=== PATIENT | male | born 1975 | race Caucasian/White ===

== ENCOUNTER → 2017-03-23 | Outpatient (CLI) | payer BC ==
--- NOTE | 2017-03-23 14:10 | EST ---
EXERCISE STRESS DATE OF SERVICE: 03/23/2017 AGE: 41 SEX: Male HT: 70 WT: 240 PROTOCOL: Tayo STAGE: IV DURATION OF EXERCISE: 9 minutes 45 seconds HEART RATE REST: 60 BLOOD PRESSURE REST: 151/95 MAXIMUM HEART RATE ACHIEVED: 156 MAXIMUM BLOOD PRESSURE: 169/75 85% MPHR: 150 100% MPHR: 177 METS: 11.3 INDICATIONS: Chest pain. Baseline EKG revealed normal sinus rhythm without significant ST-T changes. Patient walked for 9 minutes 45 seconds, achieved a maximal heart rate of 156 beats per minute, which is well above 85% of predicted maximal. He developed fatigue and shortness of breath, but did not have any angina or arrhythmia. EKG did not reveal any ST-segment changes to indicate ischemia. By EKG criteria, this is a negative stress test with good exercise capacity. There was no angina or arrhythmia. There is no evidence to suggest any ischemia on this stress test. CANDYL / DANTEN: [id number] /
== END ==
LOC: RADNMMAIN 10:50
PROVIDERS: ATTEND Family Medicine
DX: R07.9 Chest pain, unspecified (principal)
CPT/HCPCS: 93017

== ENCOUNTER → 2017-09-06 | Outpatient (CLI) | payer BC ==
--- NOTE | 2017-09-06 15:52 | CONS ---
CONSULTATION DATE OF SERVICE: 09/06/2017. 42-year-old gentleman has been re-evaluated in the Sleep Center for obstructive sleep apnea-hypopnea syndrome. HISTORY OF PRESENT ILLNESS/SLEEP WAKE EVALUATION: Patient had been diagnosed with obstructive sleep apnea in 2013. At that time, he was started on treatment with CPAP and he continued using his CPAP equipment at the present time. I never saw him after the titration. The patient continued to use his CPAP equipment every night for the whole night. I checked his CPAP unit. CPAP pressure is 12 cm of water. Usage is 30/30 nights for more than 4 hours. Average usage is 6.3 hours. Sometimes patient has discomfort in his chest in the morning after using CPAP. Machine does not have an information about apnea- hypopnea index. Ramp is 45 minutes. Since previous titration, patient increased his weight only 2 pounds. The patient's sleep schedule on working days from 10:00 p.m. to 4:00 a.m., on weekends from 10:00 p.m. to 6:00 a.m. No problem with falling asleep. According to him, he does not snore if he is using machine. He wakes up from sleep up to 2 times, but no nocturia. No episodes of hypnagogic hallucinations, sleep paralysis or cataplexy. [place] Sleepiness Scale is 9. PAST MEDICAL HISTORY: Hyperlipidemia, low level of vitamin D. MEDICATIONS: Vitamin D supplement, some [id number] supplements for decreasing cholesterol. PAST SURGICAL HISTORY: Appendectomy. REVIEW OF SYSTEMS: Sometimes awakenings from sleep, feeling of pressure in the chest in the mornings after using CPAP. SOCIAL HISTORY: Negative for smoking. Alcohol occasionally. FAMILY HISTORY: Hypertension, heart problems, hyperlipidemia, arthritis, snoring, cancer. PHYSICAL EXAM: GENERAL 42-year-old gentleman without distress. VITAL SIGNS BP 129/71, HR 60, RR 16, height 5 feet 9-1/2 inches, weight 244, BMI 35.5, temperature 97.8, oxygen saturation on room air 96%. HEENT PERRLA, EOMI, evaluation of oropharynx showed extremely low position of soft palate. Mallampati IV. Neck is 18 inches in circumference. Restriction of nasal breathing on the left side. Possible nasal septum deviation. NECK Supple, no JVD. Thyroid is not palpable. LUNGS Clear to percussion and to auscultation. Good air exchange. No wheezing or rhonchi. HEART S1, S2 regular. No murmurs, gallops, or rubs. ABDOMEN Obese. Soft and nontender. Bowel sounds are present. No organomegaly appreciated. EXTREMITIES No clubbing or cyanosis. DRAWER IN STITCH BONDING MACHINE Awake, alert, and oriented X3. Cranial nerves 2 to 7 intact. There is no fasciculation or atrophy. noted. No focal deficits observed. IMPRESSION: 1. Obstructive sleep apnea-hypopnea syndrome by results of polysomnography in 2013 with apnea-hypopnea index 24.7. The patient continued treatment with CPAP presently at the pressure of 12 cm of water. Sometimes in the morning, patient feels chest pressure after using CPAP equipment. 2. Hyperlipidemia. 3. Low level of vitamin D. 4. Status post appendectomy. 5. Obesity, BMI 35.5. PLAN: 1. Repeat the CPAP titration with a goal possibly decrease CPAP pressure. 2. Losing weight. 3. Sleep hygiene with regular time in bed for at least 8 hours. 4. No driving if feeling sleepiness. Thank you very much for referring your patient for evaluation. Sincerely, Walter Pacheco MD, PhD, FAASM Diplomat of [place] [employer] [place] [employer] Delivery Room Clerk of [facility] MMODL / IJN: [id number] /
== END | disposition home or self-care (01) ==
LOC: SLEEP 13:38
PROVIDERS: ATTEND Internal Medicine
DX: G47.33 Obstructive sleep apnea (adult) (pediatric) (principal); E78.5 Hyperlipidemia, unspecified; E55.9 Vitamin D deficiency, unspecified; E66.9 Obesity, unspecified; Z68.35 Body mass index [BMI] 35.0-35.9, adult; Z99.89 Dependence on other enabling machines and devices; Z79.899 Other long term (current) drug therapy; Z90.89 Acquired absence of other organs
CPT/HCPCS: 99211

== ENCOUNTER → 2017-12-04 | Outpatient (CLI) | payer BC ==
--- NOTE | 2017-12-04 10:41 | XR ---
EXAMINATION TYPE: XR foot complete LT DATE OF EXAM: 12/04/2017 CLINICAL HISTORY: pain TECHNIQUE: Frontal, lateral and oblique images of the left foot are obtained. COMPARISON: None. FINDINGS: There is no acute fracture/dislocation evident. The joint spaces appear within normal gregory its. The overlying soft tissue appears unremarkable. IMPRESSION: There is no acute fracture or dislocation. ICD 10 NO FRACTURE, INITIAL EVALUATION
== END | disposition home or self-care (01) ==
LOC: RADXRYALE 09:46
PROVIDERS: ATTEND Physician Assistant Medical
DX: M79.672 Pain in left foot (principal)

== ENCOUNTER 2018-01-06 20:37 | Emergency (ER) | payer BC ==
[2018-01-06 20:41] VITALS: RESP 18
[2018-01-06] MEDS ORDERED: PROPARACAINE 0.5% OPHTH DROPS 15 ML BTL BOTH EYES STA (20:44)
--- NOTE | 2018-01-06 21:24 | ED ---
Eye Problem HPI - General Chief complaint: Eye Problems Stated complaint: eye pain Time Seen by Provider: 01/06/18 20:44 Source: patient Mode of arrival: ambulatory Limitations: no limitations - History of Present Illness Initial comments: 42-year-old male patient presents to the emergency department today for evaluation of bilateral eye discomfort. Patient states on he was working outside on his deck. He states that he was sawing wood and did get some dust in his eyes. States that he has been having some grittiness to his bilateral eyes since then. States that he did follow-up with the doctor and had them evaluate thighs but they couldn't find any foreign bodies or injuries at that time. Patient states that he continued to have some discomfort today however the left eye became worse, the lower lid started to swell, and he had pain radiating around his face. Patient denies taking any medication for his symptoms. Denies any blurred or double vision. States when he woke up his eyes were crusted, but he denies any continuous drainage. Denies any fevers or chills. Patient states he does have a slight headache. Patient denies any recent rash, fever, chills, shortness breath, chest pain, abdominal pain, nausea , vomiting, diarrhea, constipation, back pain, numbness, tingling, dizziness, weakness, hematuria, dysuria, urinary urgency, urinary frequency, headache, visual changes, or any other complaints. - Related Data Previous Rx's Medication Instructions Recorded Loratadine [Claritin] 10 mg PO DAILY #30 tablet 01/06/18 Allergies Allergy/AdvReac Type Severity Reaction Status Date / Time Ajffoyo-Rou-Kuz Reductase Allergy Unknown Verified 01/06/18 20:39 Inhibitor Review of Systems ROS Statement: Those systems with pertinent positive or pertinent negative responses have been documented in the HPI. ROS Other: All systems not noted in ROS Statement are negative. Past Medical History Past Medical History: No Reported History History of Any Multi-Drug Resistant Organisms: None Reported Past Surgical History: Appendectomy Past Psychological History: No Psychological Hx Reported Smoking Status: Never smoker Past Alcohol Use History: None Reported Past Drug Use History: None Reported General Exam Limitations: no limitations General appearance: alert, in no apparent distress, other (This is a well- developed, well-nourished adult male patient in no acute distress. Vital signs upon presentation are temperature 98.2F, pulse 75, respirations 18, blood pressure 127/81, pulse ox 98% on room air.) Eye exam: Present: PERRL, EOMI, other (No proptosis). Absent: normal appearance , scleral icterus, conjunctival injection, nystagmus, periorbital swelling Expanded Eyelids: Normal Inspection: Right, Erythema: Left (Lower lid), Swelling: Left ( Lower lid) Pupils: Regular, Round: Bilateral, Reactive: Bilateral Sclera/Conjunctival: Normal Inspection: Bilateral Anterior chamber: Normal Inspection: Bilateral ENT exam: Present: normal exam, normal oropharynx, mucous membranes moist, TM's normal bilaterally Neck exam: Present: normal inspection. Absent: tenderness, meningismus, lymphadenopathy Respiratory exam: Present: normal lung sounds bilaterally. Absent: respiratory distress, wheezes, rales, rhonchi, stridor Cardiovascular Exam: Present: regular rate, normal rhythm, normal heart sounds. Absent: systolic murmur, diastolic murmur, rubs, gallop, clicks Neurological exam: Present: alert, oriented X3, CN II-XII intact Psychiatric exam: Present: normal affect, normal mood Skin exam: Present: warm, dry, intact, normal color. Absent: rash Course Vital Signs 01/06/18 20:40 Temperature 98.2 F Pulse Rate 75 Respiratory 18 Rate Blood Pressure 127/81 O2 Sat by Pulse 98 Oximetry Medical Decision Making - Medical Decision Making 42-year-old male patient presents to the emergency department today for evaluation of bilateral eye discomfort and left eye swelling. Physical examination was performed, right eye appears to be within normal limits with no injection, swelling, drainage, abrasion, or lesion. Left eye does exhibit left lower lid swelling and erythema. The globe appears to be intact with no evidence of injection, abrasion, or laceration. Upper lip is normal. Patient has no proptosis. No fever, vital signs are stable. Patient be discharged home with oral antihistamine, moxifloxacin drops and referral to ophthalmology Dr. Doe. Patient educated regarding return parameters. He verbalizes understanding and agrees with this plan. Disposition Clinical Impression: Inflammation of left eyelid Disposition: HOME SELF-CARE Condition: Good Instructions: Moxifloxacin (Into the eye), Blepharitis (ED) Additional Instructions: Do warm compresses to the eye. Do one drop to the left eye 3 times a day. Follow-up with driver messenger if your symptoms aren't improving over the next 1 -2 days. Take ibuprofen as needed for discomfort. Return here immediately for any new, worsening, or concerning symptoms. Prescriptions: Loratadine [Claritin] 10 mg PO DAILY #30 tablet Is patient prescribed a controlled substance at d/c from ED?: No Referrals: Yan Boone DO [Primary Care Provider] - 1-2 days Saul Doe MD [STAFF PHYSICIAN] - 1-2 days Time of Disposition: 21:37
[2018-01-06] MEDS ORDERED: MOXIFLOXACIN HCL 0.5% DROPS 3 ML BTL LEFT EYE ONE (21:25)
[2018-01-06] MEDS ORDERED: LORATADINE 10 MG TAB PO STA (21:25)
[2018-01-06] MEDS ORDERED: DIPH,PERTUS(ACELL)TETVAC-LF 0.5 ML VIAL IM ONE (21:25)
[2018-01-06 21:54] VITALS: BP 109/65; PULSE 65; TEMP 97.8
== END 2018-01-06 21:59 | disposition home or self-care (01) ==
LOC: EC 20:37
DX: H01.9 Unspecified inflammation of eyelid (principal); Z23 Encounter for immunization; Z88.8 Allergy status to other drugs, medicaments and biological substances
CPT/HCPCS: 90471; 90715; 99283

== ENCOUNTER → 2020-04-13 | Outpatient (CLI) | payer BC ==
--- NOTE | 2020-04-14 07:05 | XR ---
EXAMINATION TYPE: XR foot complete RT DATE OF EXAM: 04/13/2020 CLINICAL HISTORY: pain TECHNIQUE: Frontal, lateral and oblique images of the right foot are obtained. COMPARISON: None. FINDINGS: There is no acute fracture/dislocation evident. The joint spaces appear within normal gregory its. The overlying soft tissue appears unremarkable. IMPRESSION: There is no acute fracture or dislocation. ICD 10 NO FRACTURE, INITIAL EVALUATION
--- NOTE | 2020-04-14 07:11 | XR ---
EXAMINATION TYPE: XR knee complete LT DATE OF EXAM: 04/13/2020 CLINICAL HISTORY: pain TECHNIQUE: Three views of the left knee are obtained. COMPARISON: None. FINDINGS: There is no acute fracture/dislocation. The tri-compartment joint spaces appear within no rmal limits. The overlying soft tissue appears unremarkable. IMPRESSION: There is no acute fracture or dislocation ICD 10 NO FRACTURE, INITIAL EVALUATION
== END | disposition home or self-care (01) ==
LOC: RADXRYALE 16:22
PROVIDERS: ATTEND Physician Assistant Medical
DX: M79.671 Pain in right foot (principal); M25.562 Pain in left knee

== ENCOUNTER → 2020-11-25 | Outpatient (CLI) | payer BC ==
--- NOTE | 2020-11-25 20:48 | CONS ---
CONSULTATION DATE OF SERVICE: 11/25/2020 This 45-year-old gentleman has been re-evaluated in Sleep Center for obstructive sleep apnea-hypopnea syndrome. HISTORY OF PRESENT ILLNESS/SLEEP-WAKE EVALUATION: The patient has a history of obstructive sleep apnea since 2013. He continues to use his CPAP equipment every night. Recently the patient developed snoring and awakenings from sleep with gasping for air while on treatment with CPAP. His weight has increased compared to the previous visit by about 12 pounds. His sleep schedule is from 9:30 p.m. to 4:30 a.m. on weekdays and from 10 p.m. to 6 a.m. on weekends. He usually sleeps on the back or in different positions and occasionally rolls over during the night. No history of hypnagogic hallucinations, sleep paralysis or cataplexy. [place] Sleepiness Scale increased to 10. PAST MEDICAL HISTORY: Positive for hyperlipidemia, low level of vitamin D. PAST SURGICAL HISTORY: Appendectomy, left eye surgery in 2019. SOCIAL HISTORY: Negative for smoking, and recently no use of alcohol. FAMILY HISTORY: Hypertension, heart problems, hyperlipidemia, arthritis, cancer, snoring. REVIEW OF SYSTEMS: No fevers. No double vision. No recent chest pain. No shortness of breath. No abdominal pain. No bleeding episodes. No blood in the urine. No seizure episodes. Snoring on CPAP, some awakenings from sleep, episodes of gasping for air while using CPAP. PHYSICAL EXAMINATION: GENERAL: A pleasant gentleman without distress. VITAL SIGNS: BP 131/83, HR 63, RR 18, height 5 feet 10 inches, weight 254.8, temperature 97.6, oxygen saturation at room air 96%. Body mass index 36.8. HEENT: PERRLA, EOMI. Evaluation of oropharynx showed tongue protrudes midline. Extremely low position of soft palate. Mallampati IV. NECK: Supple. No JVD. Thyroid is not palpable. Neck is wide, measuring 19 inches in circumference. LUNGS: Clear to percussion and to auscultation. Good air exchange. No wheezing or rhonchi. HEART: S1, S2 regular. No murmurs, gallops or rubs. ABDOMEN: Slightly obese. EXTREMITIES: No clubbing or cyanosis. YARN TWISTER: Awake, alert, and oriented X3. Cranial nerves 2 to 7 intact. There is no fasciculation or atrophy. noted. No focal deficits observed. IMPRESSION: 1. Obstructive sleep apnea-hypopnea syndrome. By results of polysomnogram in 2013, apnea-hypopnea index 24.7. The patient is on treatment with CPAP but snores with CPAP and has awakenings from sleep. 2. Hyperlipidemia. 3. Low level of vitamin D. 4. Status post appendectomy. 5. Obesity. BMI 36.8. Previously several years ago the patient had discomfort in the chest while using CPAP, and after that I decreased the pressure. He feels well, but I did not see him since that time. Today is his first visit since he came back. PLAN: 1. CPAP titration for re-evaluation of effective CPAP pressure at the present time. At present, patient wakes up from sleep with snoring and gasping for air. Before he complained that the pressure was too high and he had discomfort in the chest. 2. Watching and losing weight. 3. Sleep hygiene with regular time in bed for at least 7-1/2 hours. 4. Preferable position during sleep on the side. 5. No driving if patient feels any sleepiness. 6. I will see the patient for follow-up visit to explain results of testing and following plan. Thank you very much for allowing me to participate in the management of your patient. Sincerely, Walter Pacheco MD, PhD, FAASM Diplomat of [place] [employer] [employer] Plant And Machinery Valuer of [facility] [place] MMODL / CHICO: [id number] /
== END ==
LOC: SLEEP 11:30
PROVIDERS: ATTEND Internal Medicine
DX: G47.33 Obstructive sleep apnea (adult) (pediatric) (principal); E78.5 Hyperlipidemia, unspecified; E55.9 Vitamin D deficiency, unspecified; E66.9 Obesity, unspecified; Z68.36 Body mass index [BMI] 36.0-36.9, adult; Z90.49 Acquired absence of other specified parts of digestive tract; Z88.8 Allergy status to other drugs, medicaments and biological substances
CPT/HCPCS: 99211

== ENCOUNTER → 2021-06-23 | Outpatient (CLI) | payer BC ==
--- NOTE | 2021-06-23 22:27 | SFUN ---
SLEEP CENTER FOLLOW UP NOTE DATE OF SERVICE: 06/23/2021 This 46-year-old gentleman who has been followed in Sleep Center for treatment of obstructive sleep apnea-hypopnea syndrome. Recently the patient had CPAP titration and after that received a new CPAP unit. Today is his first visit after he received new CPAP equipment. The patient likes it and is able to use it every night without significant problems. He adjusted the level of humidity because the machine takes too much water during the night, according to the patient, in the humidifier. [place] Sleepiness Scale today is 10, which is borderline. I checked information from the machine. The patient used it 73% of the time for more than 4 hours. It is in automatic regimen 5-10, average pressure 9.8 with maximal 10, apnea-hypopnea index only 1.1. Leak is 8.8, which is acceptable, in good range. Pravastatin. PHYSICAL EXAMINATION: GENERAL: Pleasant patient in no distress. VITAL SIGNS: BP 122/74, HR 64, RR 15, weight 261 pounds, temperature 98.5, oxygen saturation at room air 97%. HEENT: PERRLA, EOMI, evaluation of oropharynx showed tongue protrudes midline. Extremely low position of soft palate; Mallampati IV. NECK: Supple, no JVD. Thyroid is not palpable. LUNGS: Clear to percussion and to auscultation. Good air exchange. No wheezing or rhonchi. HEART: S1, S2 regular. No murmurs, gallops, or rubs. ABDOMEN: Soft and nontender. Bowel sounds are present. No organomegaly appreciated. EXTREMITIES: No clubbing or cyanosis. MANAGER: Awake, alert, and oriented X3. Cranial nerves 2 to 7 intact. There is no fasciculation or atrophy. noted. No focal deficits observed. IMPRESSION: 1. Obstructive sleep apnea-hypopnea syndrome. Patient demonstrated good compliance with treatment, benefitting from treatment. Normal respiration on CPAP. 2. Hyperlipidemia. 3. Obesity. 4. History of low vitamin D level. 5. Status post appendectomy. PLAN: 1. Patient will continue to use PAP equipment every night for the whole night. 2. Sleep hygiene with regular time in bed for at least 7-1/2 to 8 hours. 3. Precautions related to driving. No driving if feeling sleepiness. 4. I will maintain all necessary prescription for PAP supplies including mask, tube, filters. 5. Watching weight. 6. Follow-up visit in 6 months or earlier if patient has any problems. Thank you very much for allowing me to participate in the management of your patient. Sincerely, Walter Pacheco MD, PhD, FAASM Diplomat of [place] [employer] Sleep Medicine Board of [place] [employer] Gaming Surveillance Observer of [facility] [place] MMODL / DANTEN: [id number] /
== END ==
LOC: SLEEP 14:32
PROVIDERS: ATTEND Internal Medicine
DX: G47.33 Obstructive sleep apnea (adult) (pediatric) (principal); E78.5 Hyperlipidemia, unspecified; E66.9 Obesity, unspecified; Z86.39 Personal history of other endocrine, nutritional and metabolic disease; Z90.49 Acquired absence of other specified parts of digestive tract; Z88.8 Allergy status to other drugs, medicaments and biological substances

== ENCOUNTER → 2022-02-02 | Outpatient (CLI) | payer BC ==
--- NOTE | 2022-02-02 17:14 | P.PN ---
Subjective DATE: 02/02/2022 FOLLOW UP VISIT. Patient with obstructive sleep apnea hypopnea syndrome return to sleep center for follow-up visit. Information from previous visit have been reviewed. Patient is using PAP equipment every night for the whole night, getting PAP supplies in time. Sometimes patient snores while using CPAP The patient does not have significant problems with the mask, PAP unit and humidification. [place] sleepiness scale is 10. I checked information from PAP unit. PAP unit pressure 510, average 9.9 cm H2O. Usage is 97 % for more then 4 hours, average 6.5 hours per night. Leak is 3 l/m, which is in acceptable range. Apnea Hypopnea Index is 1, which is normal. MEDICATIONS:1. Pravastatin 2. Fish oil 3. Vitamin D During physical exam: GENERAL: A pleasant patient without any distress. VITAL SIGNS: BP 128/81, HR 62, RR 18 , weight 269.0, patient increase his weight on 8 pounds, temperature 97.2, oxygen saturation at room air 96 % . HEENT: PERRLA, EOMI.low position of soft palate, Mallapati 4 . NECK: Supple. No JVD. LUNGS: Clear to percussion and to auscultation. Good air exchange. No wheezing or rhonchi. HEART: S1, S2 regular. ABDOMEN: Soft and nontender.[] EXTREMITIES: No clubbing or cyanosis. PLANER MILL GRADER: Awake, alert, and oriented x3. No focal deficit. Impressions: 1. Obstructive sleep apnea-hypopnea syndrome. Patient demonstrated great compliance with treatment, benefiting from treatment. Episodes of snoring while using CPAP equipment. 2. Hyperlipidemia. 3. Obesity. 4. History of low vitamin D level. 5. Status post appendectomy. Plan: 1. Continue using PAP equipment every night for the whole night. I changed regimen of CPAP pressure to the level 515 centimeters of water. 2. To change air filter at least 1-2 times per month. 3. PAP unit should stay lower then position of the head. 4. Advised patient to remove all remaining water from humidifier canister daily and make it dry after each usage. Refill canister with fresh distilled water before each usage. 5. Sleep hygiene with regular time in bed for at least 8 hours. 6. Precautions related to driving. No driving if feel any sleepiness. 7. I will maintain prescription for PAP supplies including mask, tube, filters. 8. Follow up visit in 6 months or earlier if patient has any problems. 9. Watching weight. Thank you very much for allowing me to participate in the management of your patient. Walter Pacheco MD, PhD, FAASM. Diplomat of [place] [employer], Sleep Medicine Board by [place] [employer] Trim Mounter of [facility] [place]
== END ==
LOC: SLEEP 15:08
PROVIDERS: ATTEND Internal Medicine
DX: G47.33 Obstructive sleep apnea (adult) (pediatric) (principal); E78.5 Hyperlipidemia, unspecified; E66.9 Obesity, unspecified; Z90.49 Acquired absence of other specified parts of digestive tract; Z86.39 Personal history of other endocrine, nutritional and metabolic disease; Z99.89 Dependence on other enabling machines and devices; Z88.8 Allergy status to other drugs, medicaments and biological substances
CPT/HCPCS: 99212

== ENCOUNTER 2022-07-19 09:25 | Day surgery (SDC) | payer BC ==
[~2022-07-19 09:25] MED LIST: LACTATED RINGERS 1,000 ML IV SCH; LIDOCAINE 1% (10MG/ML) FOR IV START INTRADERMA PRN
[2022-07-19 09:52] VITALS: RESP 16; TEMP 97.1
[2022-07-19] MEDS ORDERED: PROPOFOL 10 MG/ML 20 ML VIAL IV ONE (10:53)
--- NOTE | 2022-07-19 11:05 | P.PCN ---
Date of Procedure: 07/19/22 Procedure(s) Performed: BRIEF HISTORY: Patient is a 47-year-old pleasant white male scheduled for an elective colonoscopy as a part of screening for colon cancer. PROCEDURE PERFORMED: Colonoscopy. PREOPERATIVE DIAGNOSIS: Screening for colon cancer. IV sedation per Anesthesia. PROCEDURE: After informed consent was obtained, the patient, was brought into the endoscopy unit. IV sedation was administered by Anesthesia under continuous monitoring. Digital rectal examination was normal. Initially the Olympus CF-160 flexible video colonoscope was then inserted in the rectum, gradually advanced into the cecum without any difficulty. Careful examination was performed as the scope was gradually being withdrawn. Ileocecal valve and the appendiceal orifice were visualized and appeared normal. Prep was excellent. Mucosa of the cecum, ascending colon, transverse colon, descending colon, sigmoid colon, and rectum appeared normal. Retroflexion was performed in the rectum and no lesions were seen. The patient tolerated the procedure well. IMPRESSION: Normal-appearing colon from rectum to cecum with no evidence of colorectal neoplasia . RECOMMENDATIONS: Findings of this examination were discussed with the patient as his family. He was advised to have a repeat screening colonoscopy in 10 year s..
[2022-07-19 11:32] VITALS: BP 115/75; PULSE 55
== END 2022-07-19 12:11 | disposition home or self-care (01) ==
LOC: ORWHC2ENDO 09:25
PROVIDERS: ATTEND Internal Medicine Gastroenterology
DX: Z12.11 Encounter for screening for malignant neoplasm of colon (principal); Z88.8 Allergy status to other drugs, medicaments and biological substances; G47.33 Obstructive sleep apnea (adult) (pediatric); Z79.899 Other long term (current) drug therapy
CPT/HCPCS: 45378; J2704

== ENCOUNTER → 2022-11-20 | Outpatient (CLI) | payer BC ==
--- NOTE | 2022-11-21 11:49 | XR ---
EXAMINATION TYPE: XR shoulder complete 3 views RT DATE OF EXAM: 11/20/2022 Comparison: None Clinical History: 47-year-old male [id number] RT SHLD PAIN Findings: AC joint appears congruent and intact. Subacromial space is preserved. No tendinous or bursal calcifi cations. No acute fracture, subluxation, or dislocation is seen. Impression: No acute osseous abnormality seen.
== END | disposition home or self-care (01) ==
LOC: RADXRYALE 16:38
PROVIDERS: ATTEND Physician Assistant
DX: M25.511 Pain in right shoulder (principal)

== ENCOUNTER → 2023-02-28 | Outpatient (CLI) | payer BC ==
--- NOTE | 2023-02-28 16:57 | P.PN ---
Subjective DATE: 02/28/2023 FOLLOW UP VISIT. Patient with obstructive sleep apnea hypopnea syndrome return to sleep center for follow-up visit. Information from previous visit have been reviewed. Patient is using PAP equipment every night for the whole night, getting PAP supplies in time. The patient does not have significant problems with the mask, PAP unit and humidification. [place] sleepiness scale is 9, which is borderline. I checked information from PAP unit. PAP unit pressure 5-15, average 12.8 cm H2O. Usage is 100 % for more then 4 hours, average 6.5 hours per night. Leak is 0.8 l/m, which is in acceptable range. Apnea Hypopnea Index is 1.0, which is normal. MEDICATIONS:1. Pravastatin 40 mg once a day During physical exam: GENERAL: A pleasant patient without any distress. VITAL SIGNS: BP 118/80, HR 67, RR 16 , weight 269.6, temperature 98.4, oxygen saturation at room air 98 % . HEENT: PERRLA, EOMI.low position of soft palate, Mallapati 4 . NECK: Supple. No JVD. LUNGS: Clear to percussion and to auscultation. Good air exchange. No wheezing or rhonchi. HEART: S1, S2 regular. ABDOMEN: Soft and nontender. Slightly obese EXTREMITIES: No clubbing or cyanosis. POURER METAL: Awake, alert, and oriented x3. No focal deficit. Impressions: 1. Obstructive sleep apnea-hypopnea syndrome. Patient demonstrated great compliance with treatment, benefiting from treatment. 2. Obesity, BMI 39.1, patient lost 5 pounds comparing with previous visit. 3. Hyperlipidemia. 4. History of low vitamin D. 5. Status post appendectomy. Plan: 1. Continue using PAP equipment every night for the whole night. 2. To change air filter at least 1-2 times per month. 3. PAP unit should stay lower then position of the head. 4. Advised patient to remove all remaining water from humidifier canister daily and make it dry after each usage. Refill canister with fresh distilled water before each usage. 5. Sleep hygiene with regular time in bed for at least 8 hours. 6. Precautions related to driving. No driving if feel any sleepiness. 7. I will maintain prescription for PAP supplies including mask, tube, filters. 8. Follow up visit in 6 months or earlier if patient has any problems. 9. Watching and losing weight. Thank you very much for allowing me to participate in the management of your patient. Walter Pacheco MD, PhD, FAASM. Diplomat of [employer], Sleep Medicine Board by [employer] Lease Administration Supervisor of [facility] [place]
== END ==
LOC: 3 N SLEEP 16:17
PROVIDERS: ATTEND Internal Medicine
DX: G47.33 Obstructive sleep apnea (adult) (pediatric) (principal); E78.5 Hyperlipidemia, unspecified; E66.9 Obesity, unspecified; Z68.39 Body mass index [BMI] 39.0-39.9, adult; Z90.49 Acquired absence of other specified parts of digestive tract; Z99.89 Dependence on other enabling machines and devices; Z88.8 Allergy status to other drugs, medicaments and biological substances
CPT/HCPCS: 99212

== ENCOUNTER → 2023-10-03 | Outpatient (CLI) | payer BC ==
[2023-10-03 17:01] VITALS: BP 130/82; PULSE 64; RESP 16; TEMP 98.1
--- NOTE | 2023-10-03 17:53 | P.PN ---
Subjective DATE: 10/03/2023 FOLLOW UP VISIT. Patient with obstructive sleep apnea hypopnea syndrome return to sleep center for follow-up visit. Information from previous visit have been reviewed. Patient is using PAP equipment every night for the whole night, getting PAP supplies in time. The patient does not have significant problems with the mask, PAP unit and humidification. [place] sleepiness scale is increased to 12. I checked information from PAP unit. PAP unit pressure 5-15, average 13.0 cm H2O. Usage is 100% for more then 4 hours, average 6.75 hours per night. Leak is 13.0 l/m, which is in acceptable range. Apnea Hypopnea Index is 1.2, which is normal. MEDICATIONS:1. Pravastatin 2. Vitamin D During physical exam: GENERAL: A pleasant patient without any distress. VITAL SIGNS: Please see notes below. HEENT: PERRLA, EOMI.low position of soft palate, Mallapati 4 . NECK: Supple. No JVD. LUNGS: Clear to percussion and to auscultation. Good air exchange. No wheezing or rhonchi. HEART: S1, S2 regular. ABDOMEN: Soft and nontender.[] EXTREMITIES: No clubbing or cyanosis. GAS METER CHECKER: Awake, alert, and oriented x3. No focal deficit. Impressions: 1. Obstructive sleep apnea-hypopnea syndrome. Patient demonstrated great compliance with treatment, benefiting from treatment. 2. Obesity BMI 38.7. 3. Hyperlipidemia. 4. Low level of vitamin D. 5. Status post appendectomy. Plan: 1. Continue using PAP equipment every night for the whole night. 2. To change air filter at least 1-2 times per month. 3. PAP unit should stay lower then position of the head. 4. Advised patient to remove all remaining water from humidifier canister daily and make it dry after each usage. Refill canister with fresh distilled water before each usage. 5. Sleep hygiene with regular time in bed for at least 8 hours. 6. Precautions related to driving. No driving if feel any sleepiness. 7. I will maintain prescription for PAP supplies including mask, tube, filters. 8. Watching and losing weight. 9. Follow up visit in 6 months or earlier if patient has any problems. Thank you very much for allowing me to participate in the management of your patient. Walter Pacheco MD, PhD, FAASM. Diplomat of [employer], Sleep Medicine Board by [employer] Control Panel Operator [facility] [place] Objective - Vital Signs Vital signs: Vital Signs Temp 98.1 F 10/03/23 16:41 Pulse 64 10/03/23 16:41 Resp 16 10/03/23 16:41 BP 130/82 10/03/23 16:41 Pulse Ox 98 10/03/23 16:41 FiO2 Intake & Output 10/02/23 10/03/23 10/03/23 18:59 06:59 18:59 Weight 122.47 kg
== END | disposition home or self-care (01) ==
LOC: 3 N SLEEP 16:10
PROVIDERS: ATTEND Internal Medicine
DX: G47.33 Obstructive sleep apnea (adult) (pediatric) (principal); E66.9 Obesity, unspecified; E78.5 Hyperlipidemia, unspecified; D64.9 Anemia, unspecified; Z90.49 Acquired absence of other specified parts of digestive tract; Z68.38 Body mass index [BMI] 38.0-38.9, adult; Z88.1 Allergy status to other antibiotic agents
CPT/HCPCS: 99212

== ENCOUNTER → 2024-07-03 | Outpatient (CLI) | payer BC ==
[2024-07-03 15:51] VITALS: BP 116/74; PULSE 63; RESP 16; TEMP 98.2
--- NOTE | 2024-07-03 16:26 | P.PROGSL ---
Subjective DATE: 07/03/2024 FOLLOW UP VISIT. Patient with obstructive sleep apnea hypopnea syndrome return to sleep center for follow-up visit. Information from previous visit have been reviewed. Patient is using PAP equipment every night for the whole night, getting PAP supplies in time. The patient does not have significant problems with the mask, PAP unit and humidification. [place] sleepiness scale is 8, which is in normal range. I checked information from PAP unit. PAP unit pressure 5-15, average 12.4 cm H2O. Usage is 100% for more then 4 hours, average 6.4 hours per night. Leak is perfect 1 l/m. Apnea Hypopnea Index is 0.9, which is normal. MEDICATIONS have been reviewed, please see below. During physical exam: GENERAL: A pleasant patient without any distress. VITAL SIGNS: Please see below, weight is 263 lbs. HEENT: PERRLA, EOMI.low position of soft palate, Mallapati 4 . NECK: Supple. No JVD. LUNGS: Clear to percussion and to auscultation. Good air exchange. No wheezing or rhonchi. HEART: S1, S2 regular. ABDOMEN: Soft and nontender.[] EXTREMITIES: No clubbing or cyanosis. MAINTENANCE AIDE: Awake, alert, and oriented x3. No focal deficit. Impressions: 1. Obstructive sleep apnea-hypopnea syndrome. Patient demonstrated great compliance with treatment, benefiting from treatment. 2. Obesity, BMI 37.4. 3. Hyperlipidemia. 4. History of low level of vitamin D. 5. Status post appendectomy. Plan: 1. Continue using PAP equipment every night for the whole night. 2. Sleep hygiene with regular time in bed for at least 7.5-8 hours 3. PAP unit should stay lower then position of the head. 4. Advised patient to remove all remaining water from humidifier canister daily and make it dry after each usage. Refill canister with fresh distilled water before each usage. 5. Watching weight. 6. Precautions related to driving. No driving if feel any sleepiness. 7. I will maintain prescription for PAP supplies including mask, tube, filters. 8. Follow up visit in 8 months or earlier if patient has any problems. Thank you very much for allowing me to participate in the management of your patient. Walter Pacheco MD, PhD, FAASM. Diplomat of [employer], Sleep Medicine Board by [employer] Chief Minister of [facility] [place] Objective - Vital Signs Vital Signs: Vital Signs Temp 98.2 F 07/03/24 15:50 Pulse 63 07/03/24 15:50 Resp 16 07/03/24 15:50 BP 116/74 07/03/24 15:50 Pulse Ox 97 07/03/24 15:50 FiO2 Intake & Output 07/02/24 07/03/24 07/03/24 18:59 06:59 18:59 Weight 119.295 kg Home Medications: Home Medications Medication Instructions Recorded Confirmed Type Cholecalciferol [Vitamin D3 (25 25 mcg PO DAILY 07/14/22 07/03/24 History Mcg = 1000 Iu)] [place]-3/Dha/Epa/Fish Oil [Fish Oil 1 each PO DAILY 07/14/22 07/03/24 History 1,000 mg Softgel] Pravastatin Sodium [Pravachol] 10 mg PO HS 07/14/22 07/03/24 History Ubidecarenone [Co Q-10] 300 mg PO DAILY 07/14/22 07/03/24 History
== END ==
LOC: 3 N SLEEP 14:34
PROVIDERS: ATTEND Internal Medicine
DX: G47.33 Obstructive sleep apnea (adult) (pediatric) (principal); E66.9 Obesity, unspecified; E78.5 Hyperlipidemia, unspecified; Z90.49 Acquired absence of other specified parts of digestive tract; Z99.89 Dependence on other enabling machines and devices; Z68.37 Body mass index [BMI] 37.0-37.9, adult; Z88.8 Allergy status to other drugs, medicaments and biological substances
CPT/HCPCS: 99212